=== PATIENT | male | born 1980 | race Two or more races ===

== ENCOUNTER 2017-10-04 16:10 | Emergency (ER) | payer SELFPAY ==
[~2017-10-04] VITALS: Ht 175.3 cm; Wt 77.1 kg
[2017-10-04 16:32] VITALS: BP 122/78
[2017-10-04] MEDS ORDERED: FLUORESCEIN SOD 1 MG TEST STRIP OP ONE (16:45)
[2017-10-04] MEDS ORDERED: TETRACAINE HCL 0.5% OPTH(EYE) SOLN 4ML EACHEYE ONE (16:45)
== END 2017-10-04 17:39 | disposition home or self-care (01) ==
LOC: ER 16:10
DX: S00.251A Superficial foreign body of right eyelid and periocular area, initial encounter (principal); T15.01XA Foreign body in cornea, right eye, initial encounter; X58.XXXA Exposure to other specified factors, initial encounter; Y93.89 Activity, other specified; Y99.8 Other external cause status; Y92.89 Other specified places as the place of occurrence of the external cause